=== PATIENT | female | born 1955 | race Caucasian/White ===

== ENCOUNTER 2016-08-07 23:59 | Emergency (ER) | payer MEDICARE ==
[2016-08-08] MEDS ORDERED: DILAUDID 1 MG/ML AMP ONE ×2 (00:06→01:00)
[2016-08-08] MEDS ORDERED: ONDANSETRON 4 MG VIAL ONE (00:06)
[2016-08-08] MEDS ORDERED: HEPARIN 20,000 UNIT/500 ML *DVT/PE IV SCH (03:10)
[2016-08-08] MEDS ORDERED: HEPARIN 5,000 UNITS/ML **DVT/PE IV PRN (03:10)
[2016-08-08] MEDS ORDERED: HEPARIN SODIUM IV SCH ×2 (03:15→03:20)
[2016-08-08] MEDS ORDERED: DEXTROSE 5% IV SCH ×2 (03:15→03:20)
[2016-08-08] MEDS ORDERED: SODIUM CHLORIDE 0.9% 1,000 ML ONE (03:19)
== END 2016-08-08 04:40 | disposition other institution (70) ==
LOC: ER 23:59
DX: I70.722 Atherosclerosis of other type of bypass graft(s) of the extremities with rest pain, left leg (principal)
CPT/HCPCS: 36415 ×2; 80053 ×2; 85025 ×2; 85610 ×2; 85730 ×2; 86850 ×2; 86900 ×2; 86901 ×2; 96374 ×2; 96375 ×2; 96376 ×2; 99283; J1170; J1644; J2405